=== PATIENT | female | born 1970 | race Two or more races ===

== ENCOUNTER 2018-06-27 13:03 | Emergency (ER) | payer OTHER ==
[2018-06-27 13:11] VITALS: BP 124/68; PULSE 93; TEMP 98.4; BMI 31.6
--- NOTE | 2018-06-27 13:49 | PDOC ---
History of Present Illness - General Chief Complaint: Cold Symptoms Stated Complaint: SORE THROAT Time Seen by Provider: 06/27/18 13:23 History Source: Patient Exam Limitations: No Limitations - History of Present Illness Initial Comments: 06/27/18 13:45 HISTORY OF PRESENT ILLNESS: 48-year-old woman about significant medical history presents emergency department for evaluation of left ear pain, sore throat dry cough for the past 2 days. Patient denies any fevers or chills. She denies any headaches, chest pain, shortness of breath, abdominal pain, nausea, vomiting, dysuria. No recent travel or sick contacts. PAST MEDICAL HISTORY: Denies past medical history SURGICAL HISTORY: Denies ALLERGIES: No known drug allergies REVIEW OF SYSTEMS General/Constitutional: Denies fever or chills. Denies weakness, weight change. HEENT: see HPI Cardiovascular: Denies chest pain or shortness of breath. Respiratory: Denies cough, wheezing, or hemoptysis. Gastrointestinal: Denies nausea, vomiting, diarrhea or constipation. Denies rectal bleeding. Genitourinary: Denies dysuria, frequency, or change in urination. Musculoskeletal: Denies joint or muscle swelling or pain. Denies neck or back pain. Skin and breasts: Denies rash or easy bruising. Neurologic: Denies headache, vertigo, loss of consciousness, or loss of sensation. Psychiatric: Denies depression or anxiety. Endocrine: Denies increased thirst. Denies abnormal weight change. Hematologic/Lymphatic: Denies anemia, easy bleeding, or history of blood clots. Allergic/Immunologic: Denies hives or skin allergy. Denies latex allergy. PHYSICAL EXAM General Appearance: Well-appearing, appropriately dressed. No apparent distress , no intoxication. HEENT: EOMI, PERRLA, normal ENT inspection, normal voice. No conjunctival pallor. No photophobia, scleral icterus. Left TM retracted without erythema or exudate. Right TM is within normal limits. Oropharynx mildly erythematous with cobblestoning present in the posterior aspect. No tonsillar erythema or exudates present. No lesions noted. Neck: Supple. Trachea midline. No tenderness, rigidity, carotid bruit, stridor , lymphadenopathy, or thyromegaly. Respiratory/Chest: Lungs CTAB. No shortness of breath, chest tenderness, respiratory distress, accessory muscle use. No crackles, rales, rhonchi, stridor , wheezing, dullness Cardiovascular: RRR. S1, S2. No JVD, murmur, bradycardia, tachycardia. Neurologic: gas singer II-XII intact. Fully oriented, alert. Appropriate mood/affect. Motor strength 5/5. No appreciable EOM palsy, facial droop or sensory deficit. Past History - Past Medical History Allergies/Adverse Reactions: Allergies Allergy/AdvReac Type Severity Reaction Status Date / Time No Known Allergies Allergy Verified 06/27/18 13:10 Home Medications: Ambulatory Orders NK [No Known Home Medication] 06/27/18 Asthma: No Cancer: No Cardiac Disorders: No COPD: No Diabetes: Yes (Gestational DM with last ) HTN: Yes (PIH) Seizures: No Thyroid Disease: No - Suicide/Smoking/Psychosocial Hx Smoking History: Never smoked Have you smoked in the past 12 months: No Information on smoking cessation initiated: No Hx Alcohol Use: No Drug/Substance Use Hx: No Hx Substance Use Treatment: No *Physical Exam - Vital Signs Last Vital Signs Temp Pulse Resp BP Pulse Ox 98.4 F 93 H 16 124/68 100 06/27/18 13:08 06/27/18 13:08 06/27/18 13:08 06/27/18 13:08 06/27/18 13:08 Moderate Sedation - Procedure Monitoring Vital Signs: Procedure Monitoring Vital Signs Temperature 98.4 F 06/27/18 13:08 Pulse Rate 93 H 06/27/18 13:08 Respiratory Rate 16 06/27/18 13:08 Blood Pressure 124/68 06/27/18 13:08 O2 Sat by Pulse Oximetry (%) 100 06/27/18 13:08 Medical Decision Making - Medical Decision Making 06/27/18 13:45 A/P: 48-year-old woman with 2 days of upper respiratory symptoms Retractions present in the left TM Right TM is within normal limits Oropharynx mildly erythematous Cobblestoning present in the posterior oropharynx Lungs clear to auscultation bilaterally I will discharge the patient home with supportive treatment for an upper respiratory infection. *DC/Admit/Observation/Transfer Diagnosis at time of Disposition: URI (upper respiratory infection) Qualifiers: URI type: acute nasopharyngitis (common cold) Qualified Code(s): J00 - Acute nasopharyngitis [common cold] - Discharge Dispostion Disposition: HOME Condition at time of disposition: Stable Decision to Admit order: No - Referrals - Patient Instructions Printed Discharge Instructions: DI for Viral Upper Respiratory Infection -- Adult Additional Instructions: Rest, drink lots of fluids: Teas, water, soups, Pedialyte Saltwater gargles Steamy showers/seem to face break up mucus Avoid contact with others until fevers and cough resolved Lots of handwashing and good hygiene Continue [id number] medications for symptomatic relief Tylenol or Motrin for fever and pain Followup with private physician in one to 2 days as needed Return to emergency department for worsened symptoms, fevers, dehydration - Post Discharge Activity
== END 2018-06-27 13:49 | disposition home or self-care (01) ==
LOC: JERFT 13:03
DX: J00 Acute nasopharyngitis [common cold] (principal)
CPT/HCPCS: 99281-25